=== PATIENT | female | born 1980 | race Caucasian/White ===

== ENCOUNTER 2016-09-04 02:14 | Inpatient (IN) | payer MEDICAID ==
[~2016-09-04] VITALS: Ht 160 cm; Wt 68.7 kg
[~2016-09-04 02:14] MED LIST: CEPH250 PO; DIPH50 PO; PREN1TAB26 PO
[2016-09-04 02:58] LABS: BASOPHILS % (AUTO) 0.4 % (0.0-2.0); EOSINOPHILS % (AUTO) 1.9 % (1.0-6.0); HEMATOCRIT 33.6 % (36-46); HEMOGLOBIN 10.4 g/dL (12.0-16.0); LYMPHOCYTES # (AUTO) 3.5 K/uL (1.0-4.8); LYMPHOCYTES % (AUTO) 30.7 % (22.0-44.0); MEAN CORPUSCULAR HEMOGLOBIN 25.8 pg (26.0-34.0); MEAN CORPUSCULAR VOLUME 83 fL (80-100); MONOCYTES # (AUTO) 0.8 K/uL (0.1-1.0); MONOCYTES % (AUTO) 6.6 % (2.0-9.0); NEUTROPHILS % (AUTO) 60.4 % (40.0-70.0); PLATELET COUNT (AUTO) 289 K/uL (150-450); RED BLOOD CELL COUNT(AUTO) 4.04 MIL/uL (4.00-5.20); RED CELL DISTRIBUTION WIDTH 18.7 % (11.5-14.5); WHITE BLOOD COUNT (AUTO) 11.5 K/uL (4.5-11.0)
[2016-09-04 03:07] LABS: ANION GAP 5 mmol/L (8-16); CALCIUM, TOTAL 8.4 mg/dL (8.8-10.5); CARBON DIOXIDE 30 mmol/L (22-29); CHLORIDE 103 mmol/L (98-107); CREATININE 0.66 mg/dL (0.60-1.30); GLOMERULAR FILTR. RATE CALC > 60 mL/min (>60); POTASSIUM 3.5 mmol/L (3.5-5.1); SODIUM SERUM 138 mmol/L (136-145); UREA NITROGEN, BLOOD 11 mg/dL (7-18)
[2016-09-04 03:13] LABS: ALANINE AMINOTRANSFERASE 22 U/L (12-78); ALBUMIN 3.4 g/dL (3.4-5.0); ASPARTATE AMINOTRANSFERASE 15 U/L (15-37); BILIRUBIN,TOTAL 0.2 mg/dL (0.1-1.0)
[2016-09-04] MEDS ORDERED: ZOLPIDEM TARTRATE 10 MG TABLET PO PRN (04:45)
[2016-09-04 05:19] LABS: CHOL/HDL RATIO 2.5 (3.9-5.7)
[2016-09-04] MEDS ORDERED: LORazepam 2 MG/ML VIAL IM ONE (13:30)
[2016-09-04] MEDS ORDERED: DiphenhydrAMINE HCL 50 MG/ML VIAL IM ONE (13:30)
[2016-09-04] MEDS ORDERED: HALOPERIDOL LACTATE 5 MG/ML VIAL IM ONE (13:30)
[2016-09-04] MEDS ORDERED: LORazepam 2 MG/ML VIAL ONE (13:31)
[2016-09-04] MEDS ORDERED: DiphenhydrAMINE HCL 50 MG/ML VIAL ONE (13:31)
[2016-09-04] MEDS ORDERED: HALOPERIDOL LACTATE 5 MG/ML VIAL ONE (13:31)
[2016-09-04 14:10] VITALS: BP 108/63
[2016-09-05] MEDS: QUEtiapine FUMARATE 25 MG TABLET PO SCH (09:00)
[2016-09-05] MEDS: HALOPERIDOL 5 MG TABLET PO PRN (17:18)
[2016-09-05] MEDS: LORazepam 2 MG TABLET PO PRN (17:18)
[2016-09-05] MEDS: QUEtiapine FUMARATE 100 MG TABLET PO SCH (20:47)
[2016-09-05] MEDS ORDERED: ACETAMINOPHEN 325 MG TABLET PO PRN (21:15)
[2016-09-06] MEDS: PRENATAL VIT#96/FERROUS FUM/FA TABLET PO SCH (08:30)
[2016-09-06] MEDS: QUEtiapine FUMARATE 25 MG TABLET PO SCH (08:31)
[2016-09-06] MEDS ORDERED: HALOPERIDOL LACTATE 5 MG/ML VIAL IM ONE (13:30)
[2016-09-06] MEDS ORDERED: LORazepam 2 MG/ML VIAL IM ONE (13:30)
[2016-09-06] MEDS ORDERED: DiphenhydrAMINE HCL 50 MG/ML VIAL IM ONE (13:30)
[2016-09-06] MEDS: HALOPERIDOL 5 MG TABLET PO PRN (17:26)
[2016-09-06] MEDS: LORazepam 2 MG TABLET PO PRN (17:26)
[2016-09-06] MEDS: QUEtiapine FUMARATE 100 MG TABLET PO SCH (20:25)
[2016-09-07] MEDS: QUEtiapine FUMARATE 25 MG TABLET PO SCH (09:00)
[2016-09-07] MEDS: PRENATAL VIT#96/FERROUS FUM/FA TABLET PO SCH (09:00)
[2016-09-07] MEDS: QUEtiapine FUMARATE 100 MG TABLET PO SCH (20:12)
[2016-09-08] MEDS: LORazepam 2 MG TABLET PO PRN ×3 (08:02→16:59)
[2016-09-08] MEDS: HALOPERIDOL 5 MG TABLET PO PRN ×3 (08:02→16:59)
[2016-09-08] MEDS: PRENATAL VIT#96/FERROUS FUM/FA TABLET PO SCH (08:02)
[2016-09-08] MEDS: QUEtiapine FUMARATE 25 MG TABLET PO SCH (08:02)
[2016-09-08] MEDS: QUEtiapine FUMARATE 100 MG TABLET PO SCH (20:52)
[2016-09-09 08:02] VITALS: BP 111/60
[2016-09-09] MEDS: PRENATAL VIT#96/FERROUS FUM/FA TABLET PO SCH (09:26)
[2016-09-09] MEDS: QUEtiapine FUMARATE 25 MG TABLET PO SCH (09:27)
[2016-09-09] MEDS: LORazepam 2 MG TABLET PO PRN (09:32)
[2016-09-09 09:51] VITALS: BP 114/74
[2016-09-09] MEDS: HALOPERIDOL 5 MG TABLET PO PRN (09:51)
[2016-09-09] MEDS: IBUPROFEN 400 MG TABLET PO PRN ×2 (09:51→20:03)
[2016-09-09] MEDS: QUEtiapine FUMARATE 100 MG TABLET PO SCH (20:02)
[2016-09-10] MEDS: PRENATAL VIT#96/FERROUS FUM/FA TABLET PO SCH (08:19)
[2016-09-10] MEDS: QUEtiapine FUMARATE 25 MG TABLET PO SCH (08:19)
[2016-09-10 08:48] VITALS: BP 110/69
[2016-09-10] MEDS: LORazepam 2 MG TABLET PO PRN ×2 (09:48→20:56)
[2016-09-10] MEDS ORDERED: LORazepam 2 MG/ML VIAL ONE (10:53)
[2016-09-10] MEDS ORDERED: DiphenhydrAMINE HCL 50 MG/ML VIAL IM ONE (11:00)
[2016-09-10] MEDS ORDERED: LORazepam 2 MG/ML VIAL IM ONE (11:00)
[2016-09-10] MEDS ORDERED: HALOPERIDOL LACTATE 5 MG/ML VIAL IM ONE (11:00)
[2016-09-10 16:25] VITALS: BP 121/88
[2016-09-10] MEDS: HALOPERIDOL 5 MG TABLET PO PRN (20:56)
[2016-09-10] MEDS: QUEtiapine FUMARATE 100 MG TABLET PO SCH (20:56)
[2016-09-11 05:04] VITALS: BP 116/76
[2016-09-11] MEDS: PRENATAL VIT#96/FERROUS FUM/FA TABLET PO SCH (09:10)
[2016-09-11] MEDS: QUEtiapine FUMARATE 25 MG TABLET PO SCH (09:10)
[2016-09-11 16:00] VITALS: BP 120/79
[2016-09-11] MEDS: LORazepam 2 MG TABLET PO PRN (16:09)
[2016-09-11] MEDS ORDERED: HALOPERIDOL LACTATE 5 MG/ML VIAL IM ONE (16:45)
[2016-09-11] MEDS ORDERED: LORazepam 2 MG/ML VIAL IM ONE (16:45)
[2016-09-11] MEDS ORDERED: DiphenhydrAMINE HCL 50 MG/ML VIAL IM ONE (16:45)
[2016-09-11] MEDS: QUEtiapine FUMARATE 100 MG TABLET PO SCH (20:07)
[2016-09-12 06:43] VITALS: BP 104/62
[2016-09-12 09:09] VITALS: BP 113/69
[2016-09-12] MEDS: PRENATAL VIT#96/FERROUS FUM/FA TABLET PO SCH (09:25)
[2016-09-12] MEDS: QUEtiapine FUMARATE 25 MG TABLET PO SCH (09:26)
[2016-09-12] MEDS: LORazepam 2 MG TABLET PO PRN ×2 (11:44→17:15)
[2016-09-12 16:00] VITALS: BP 108/72
[2016-09-12] MEDS: QUEtiapine FUMARATE 100 MG TABLET PO SCH (20:43)
[2016-09-13 05:56] VITALS: BP 101/61
[2016-09-13] MEDS: LORazepam 2 MG TABLET PO PRN (08:13)
[2016-09-13] MEDS: PRENATAL VIT#96/FERROUS FUM/FA TABLET PO SCH (08:13)
[2016-09-13] MEDS: QUEtiapine FUMARATE 25 MG TABLET PO SCH (08:13)
[2016-09-13 08:24] VITALS: BP 119/82
[2016-09-13] MEDS ORDERED: QUET100T PO (09:59)
[2016-09-13] MEDS ORDERED: QUET25TA PO (09:59)
[2016-09-13] MEDS: HALOPERIDOL 5 MG TABLET PO PRN (11:00)
== END 2016-09-13 13:45 | disposition home or self-care (01) | DRG 750 ==
LOC: EMS 02:17 → B3A 13:26 → EMS 13:36 → B3A 13:36
PROVIDERS: ADMIT Psychiatry & Neurology Child & Adolescent Psychiatry; ATTEND Psychiatry & Neurology Child & Adolescent Psychiatry
DX: F20.0 Paranoid schizophrenia (principal); Z91.14 Patient's other noncompliance with medication regimen; D64.9 Anemia, unspecified; D72.829 Elevated white blood cell count, unspecified; F19.10 Other psychoactive substance abuse, uncomplicated; F10.10 Alcohol abuse, uncomplicated; F17.200 Nicotine dependence, unspecified, uncomplicated
CPT/HCPCS: 96372; 99285; G0480; J1200; J1630; J2060